=== PATIENT | female | born 1955 | race Caucasian/White ===

== ENCOUNTER 2020-07-28 09:18 | Emergency (ER) | payer SELFPAY ==
[2020-07-28 09:30] VITALS: BP 171/92; TEMP 98.2; BMI 32.2
[2020-07-28 10:48] LABS: BASO % 0.7 % (0-2.0); HEMATOCRIT 41.1 % (32.4-45.2); HEMOGLOBIN 13.8 GM/dL (10.7-15.3); LYMPH % 39.3 % (8-40); MCH 29.6 pg (25.7-33.7); MCHC 33.7 g/dl (32.0-36.0); MEAN CELL VOLUME 87.8 fl (80-96); MEAN PLT VOLUME 9.1 fl (7.5-11.1); MONO % 12.3 % (3.8-10.2); NEUT % 46.7 % (42.8-82.8); PLATELET COUNT 200 K/MM3 (134-434); RBC 4.68 M/mm3 (3.60-5.2); RDW 13.2 % (11.6-15.6); WHITE BLOOD COUNT 5.4 K/mm3 (4.0-10.0)
[2020-07-28 11:16] LABS: POTASSIUM 4.2 mmol/L (3.5-5.1)
[2020-07-28 11:18] LABS: BLOOD UREA NITROGEN 12.6 mg/dL (7-18); CALCIUM 9.9 mg/dL (8.5-10.1)
[2020-07-28 11:21] LABS: CREATININE 0.7 mg/dL (0.55-1.3)
[2020-07-28 11:23] LABS: BILIRUBIN,TOTAL 0.4 mg/dL (0.2-1); TOT PROT 7.8 g/dl (6.4-8.2)
[2020-07-28 12:19] VITALS: PULSE 68
== END 2020-07-28 12:15 | disposition home or self-care (01) ==
LOC: JER 09:18
DX: R55 Syncope and collapse (principal)
CPT/HCPCS: 36415; 80053; 85025; 93005; 93010; 99284-25